=== PATIENT | female | born 1970 | race Caucasian/White ===

== ENCOUNTER 2023-12-25 15:05 | Emergency (ER) | payer OTHER, SELFPAY ==
--- NOTE | 2023-12-25 15:07 | XRR_ITS ---
PROCEDURE INFORMATION: Exam: XR Right Knee Exam date and time: 12/25/2023 4:20 PM Age: 53 years old Clinical indication: Pain; Knee; Right TECHNIQUE: Imaging protocol: Radiologic exam of the right knee. Views: 3 views. COMPARISON: No relevant prior studies available. FINDINGS: Bones/joints: No acute fracture mild tricompartmental spurring of the knee without significant joint space narrowing. Mild spurring/small ossicles of the median tibial eminences are nonspecific, likely due to heterotopic ligamental calcification rather than intra-articular loose bodies. Mild arthrosis of the proximal tibiofibular joint. Soft tissues: No obvious joint effusion. XR/XR knee RT 3V* [id number] IMPRESSION: No acute findings. Overall, tricompartmental degenerative arthrosis of the knee.
[2023-12-25 15:18] VITALS: BP 148/78; PULSE 84; RESP 17; TEMP 36.6; O2SAT 96; BMI 38.0
--- NOTE | 2023-12-25 16:15 | ED_ITS ---
HPI - Extremity Problem General: Chief complaint: Extremity Injury, Lower Stated complaint: Right knee pain Time Seen by Provider: 12/25/23 16:14 Source: patient History of Present Illness: 53-year-old female presents emergency ro om complaining of right knee pain couple weeks ago she had hurt her knee she was seen by a physician and had a steroid injection placed. She did seem to getting better then today she turned and felt a popping sensation in her knee. She still having some difficulty with weightbearing. Moderate swelling she states most of the pains in the posterior aspect of her knee. No swelling in her extremity. MD Complaint: joint pain Onset (ago): minute(s) Pain Consistency: intermittent Location: right Quality: sharp Relieving factors: immobilization and rest Exacerbating factors: range of motion and weight bearing Physical Exam Narrative: EXAM NARRATIVE: Examination of the right knee there is no effusion no ligamentous instability or laxity. Mild discomfort with palpation in the popliteal fossa but no palpable fullness. No lacerations no deformity. Course Vital Signs: Vital signs: Vital Signs Temperature 97.9 F 12/25/23 15:18 Pulse Rate 92 12/25/23 16:23 Respiratory Rate 17 12/25/23 15:18 Blood Pressure 149/101 12/25/23 16:23 Pulse Oximetry 96 12/25/23 16:23 Oxygen Delivery Me thod Room Air 12/25/23 16:23 MDM - Extremity (Nontraumatic) Medical Decision Making X-ray of the right knee no acute fracture noted no joint effusion. Suspect this is a right meniscal tear based on her history. Immobilizer, keep nonweightbearing anti-inflammatories as needed. Follow-up with orthopedics. XR interpretation done by ED provider, pending radiology final review Discharge Plan Discharge Patient Disposition: Home Clinical Impression: Acute meniscal injury of right knee Condition: Stable Prescriptions: New diclofenac sodium 75 mg tablet,delayed release (DR/EC) 75 mg PO Q12H PRN (Reason: pain) Qty: 20 0RF Discharge Orders: Discharge ED (Routine); Ordered 12/25/23 Ordered By: Rafy Villa Discharge Diet: Usual diet Discharge Activity: Limit activity as instructed Patient Instructions: Meniscus Tear (ED), Opioid Safety, Pain Management Activity Restrictions/Additional Instructions: Thank you for choosing [facility] for your healthcare needs today. Please realize this is an emergency room and that we are providing you with a medical screening exam and this may not be complete and all inclusive of all the testing and or work up that you may need to determine your ailment or severity of your illness. It is very important that you follow up as instructed or that you return to the Emergency Department should you have concerns or if your condition changes or worsens in any way. Based on your symptoms suspect he may have a meniscus problem in your knee. 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
[2023-12-25 16:23] VITALS: BP 149/101; PULSE 92; O2SAT 96
[2023-12-25 16:54] VITALS: PULSE 82; O2SAT 94
--- NOTE | 2023-12-25 17:20 | DCPLANNER ---
Sent an ortho referral on 12/25/23 @ 2229
== END 2023-12-25 16:56 | disposition home or self-care (01) ==
PROVIDERS: Emergency Provider Family Medicine
DX: S89.81XA Other specified injuries of right lower leg, initial encounter (principal); X58.XXXA Exposure to other specified factors, initial encounter
CPT/HCPCS: 29530; 73562; 99283